=== PATIENT | female | born 1995 | race Hispanic/Latino ===

== ENCOUNTER 2019-05-25 11:57 | Emergency (ER) | payer OTHER ==
[2019-05-25] MEDS ORDERED: SIMETHICONE 80 MG TAB.CHEW ONE (13:06)
[2019-05-25] MEDS ORDERED: ONDANSETRON ODT 4 MG TAB ONE (13:07)
[2019-05-25] MEDS ORDERED: DICYCLOMINE HCL 20 MG TAB ONE (13:07)
== END 2019-05-25 13:26 | disposition home or self-care (01) ==
LOC: EDH 11:57
DX: K52.89 Other specified noninfective gastroenteritis and colitis (principal); K21.9 Gastro-esophageal reflux disease without esophagitis; J45.909 Unspecified asthma, uncomplicated; Z88.8 Allergy status to other drugs, medicaments and biological substances